=== PATIENT | female | born 1995 | race Caucasian/White ===

== ENCOUNTER 2017-10-01 16:04 | Emergency (ER) | payer BC ==
[~2017-10-01] VITALS: Ht 167.6 cm; Wt 74.2 kg
[~2017-10-01 16:04] MED LIST: CIPR-255 PO; IBUP-1050 PO; ONDA4TAB46 PO
[2017-10-01 16:14] VITALS: BP 130/81; PULSE 98; TEMP 36.9; O2SAT 98; Ht 167.6 cm; Wt 74.2 kg
--- NOTE | 2017-10-01 17:02 | DIAGNOSTIC IMAGING REPORT ---
R HAND MIN 3 VIEWS ROUTINE CLINICAL HISTORY: 22 years-old Female presenting with R hand pain. TECHNIQUE: Frontal, oblique, and lateral views of the right hand were obtained. COMPARISON: None. FINDINGS: No acute fracture or malalignment. No advanced degenerative change. No radiographic soft tissue abnormality. IMPRESSION: No acute osseous injury. Electronically signed by: Lukasz Reno M.D. 10/01/2017 5:00 PM Dictated Date/Time: 10/01/2017 5:00 PM
[2017-10-01] MEDS ORDERED: MGRSP NAE (17:28)
[2017-10-01] MEDS ORDERED: META-38 PO (17:28)
[2017-10-01] MEDS ORDERED: PLQ200 PO (17:28)
--- NOTE | 2017-10-01 18:26 | EMERGENCY ROOM VISIT NOTE ---
ED Visit Note First contact with patient: 16:18 Chief Complaint: Right hand pain. History of Present Illness: is a 22-year-old female who ambulates into the ED complaining of right hand pain in the area of the thumb. Patient reports approximately 1 hour ago she was riding a horse. The horse backed into a electrical fence and trapped her hand against the horse and the fence. Since that time she has been having pain over the thenar eminence, the MCP joint and the proximal femoral necks. She describes her pain as a sharp sensation. She rates her discomfort 6/10. Her pain is nonradiating. Her pain worsens with palpation in all movements of the thumb at the MCP and interphalangeal joint. She has not identified any alleviating factors related to the pain. She reports she took ibuprofen prior to arrival at the hospital with minimal relief of her discomfort. She denies any associated symptoms including elbow pain, forearm pain, wrist pain, other hand and finger pain. She also denies any numbness or tingling throughout the hand Review of Systems: As noted above in history of present illness. Past Medical History: Childhood asthma, celiac's disease, fibromyalgia, rheumatoid arthritis, migraine headaches, morphea perfunda. Current Medications: Cipro, Aleve and Zofran. Allergies to Medications: Sulfa, gluten, Cymbalta. Social History: Patient is is not employed; she feels safe in her home environment; she denies tobacco use and admits to alcohol use. Physical Examination: Vital Signs: Date Time Temp Pulse Resp B/P (MAP) Pulse Ox O2 Delivery O2 Flow Rate FiO2 10/01/17 16:14 36.9 98 18 130/81 98 Room Air GENERAL: 22-year-old female in mild to moderate distress due to pain, nontoxic- appearing, afebrile and hemodynamically stable. NEUROLOGICAL: Awake, alert and oriented to person, place and time. Answering questions appropriately and following commands. Normal gait. SKIN: Warm, dry and pink. No soft tissue trauma noted. RIGHT UPPER EXTREMITY: No gross bony deformity. No tenderness in the forearm or wrist. Moderate tenderness throughout the first metacarpal, first MCP and first proximal phalanx of the hand. There was swelling and early ecchymosis over the thenar eminence. There was no crepitus. She was able to distinguish light sensations through all dermatomes of the thumb. Capillary refill was brisk. She refused range of motion exercises due to pain. ED Course: Patient is assessed as noted above. Patient's medication list was reviewed. Right Hand X-Rays: Were read by myself and the radiologist showing no acute fractures or dislocations. Patient was placed in a thumb spica splint. Patient was educated about today's findings and instructed on her treatment plan ; she verbalized understanding and agreement with this plan. Clinical Impression: Right thumb contusion. Disposition: Patient discharged home in stable condition; prior to departure she was reassessed and subjectively reported she was feeling better and rated her discomfort 3/10. Plan: Comfort measures including rest, ice, splint use and alternating ibuprofen and acetaminophen were discussed with the patient. Patient was encouraged to follow-up with orthopedic physician if no better in 7- 10 days. Patient was encouraged return the ED for worsening/uncontrolled pain, uncontrolled swelling, hand/finger weakness/numbness/tingling or any new/ concerning symptoms.
== END 2017-10-01 17:22 | disposition home or self-care (01) ==
LOC: C.EDB 16:05 → C.EDD 17:22
DX: S60.011A Contusion of right thumb without damage to nail, initial encounter (principal); W23.1XXA Caught, crushed, jammed, or pinched between stationary objects, initial encounter; K90.0 Celiac disease; M06.9 Rheumatoid arthritis, unspecified; L94.0 Localized scleroderma [morphea]; Z88.2 Allergy status to sulfonamides